=== PATIENT | female | born 1935 | race Caucasian/White ===

== ENCOUNTER 2016-12-03 18:25 | Emergency (ER) | payer MEDICARE, OTHER ==
[2016-12-03 17:04] LABS: BASOPHILS 0.7 %; BASOPHILS ABSOLUTE 0.07 10/3/uL (0.0-0.16); EOSINOPHILS 1.9 %; ER CBC TAT 0 Hrs 09 Mins; HEMOGLOBIN 12.2 g/dL (12.0-16.0); IMMATURE GRANULOCYTES 2.7 %; IMMATURE GRANULOCYTES ABSOLUTE 0.29 10/3/uL (0.0-0.11); LYMPHOCYTES 27.1 %; LYMPHOCYTES ABSOLUTE 2.86 10/3/uL (0.67-4.30); MEAN CORPUSCULAR HEMOGLOB 29.9 pg (26.0-34.0); MONOCYTES 13.5 %; MONOCYTES ABSOLUTE 1.43 10/3/uL (0.21-1.20); NEUTROPHILS 54.1 %; NEUTROPHILS ABSOLUTE 5.72 10/3/uL (2.02-8.40); PLATELET COUNT 300 10/3/uL (150-400); RBC DISTRIBUTION WIDTH 13.9 % (12.0-16.0); RED CELL COUNT 4.08 10/6/uL (4.0-5.6); WHITE BLOOD CELLS 10.6 10/3/uL (4.5-10.5)
[2016-12-03 17:06] LABS: HEMATOCRIT 34.4 % (36.0-48.0); MANUAL DIFF NO %; MEAN CORPUS HGB CONC 35.5 g/dL (32.0-36.0); MEAN CORPUSCULAR VOLUME 84.3 fL (80-100)
[2016-12-03 17:11] LABS: ASCORBIC ACID (UR NOT ORDER) NEG (NEG); BILIRUBIN, URINE NEGATIVE (NEG); ER URINALYSIS TAT 0 Hrs 16 Mins; KETONE, URINE NEGATIVE (NEG); LEUKOCYTE ESTERASE(NOT OR SMALL (NEG); NITRITE (URINE) NEG (NEG); WBC (NOT ORDERED) (RFLEX) 5 (0-5)
[2016-12-03 17:20] LABS: A/G RATIO 0.9 (0.7-1.9); ALBUMIN 3.4 G/DL (3.5-5.0); ALKALINE PHOSPHATASE 66 U/L (45-117); BUN (BLOOD UREA NITROGEN) 29 MG/DL (6-23); CALCIUM, SERUM 9.2 MG/DL (8.5-10.4); CHLORIDE, SERUM 97 MMOL/L (96-112); CO2 (CARBON DIOXIDE) 26 MMOL/L (24-34); CREATININE 1.14 MG/DL (0.55-1.02); GFR AFRICAN AMERICAN 52 ML/MIN (>=60); GFR NON AFRICAN AMERICAN 45 ML/MIN (>=60); GLOBULIN 3.7 G/DL (2.5-4.1); GLUCOSE, SERUM 104 MG/DL (60-99); POTASSIUM, SERUM 3.6 MMOL/L (3.5-5.3); SGOT(AST) 17 U/L (5-40); SGPT(ALT) 27 U/L (5-65); SODIUM, SERUM 131 MMOL/L (135-148); TOTAL BILIRUBIN 0.6 MG/DL (0-1.2); TOTAL PROTEIN 7.1 G/DL (6.0-8.5)
[~2016-12-03 18:25] MED LIST: APRES50 PO; ASAB PO; ATEN25 PO; CARDCD120 PO; CELEXA20 PO; COZAAR100 MG PO; CRESTOR10 PO; CRESTOR20 MG PO; FERROUS SULF325 M1 PO; FISH-EPA1000 MG PO; HCTZ25B PO; I-CAPS PO; ICAPS AREDS SO1 EACH PO; ICAPS LUTEIN PO; ICAPS PO; KLOR-CON 1010 MEQ PO; KLOR-CON M2020 MEQ PO; NEXIUM20 M1 PO; NITROSTAT0.4 MG SL; NORV10 PO; NORV5 PO; OS500+D PO; PLAVIX PO; RYTHMOL150 MG PO; RYTHMOL225 MG PO; TEKTURNA300 MG PO; VITAMIN B-122500 MCG SL; VITAMIN D31000 UNIT PO; X25 PO
== END 2016-12-03 21:50 | disposition home or self-care (01) ==
LOC: ER 18:25
PROVIDERS: Emergency Medicine
DX: E86.0 Dehydration (principal); K52.9 Noninfective gastroenteritis and colitis, unspecified; Z88.2 Allergy status to sulfonamides; Z88.5 Allergy status to narcotic agent; Z88.8 Allergy status to other drugs, medicaments and biological substances; Z79.899 Other long term (current) drug therapy; Z79.82 Long term (current) use of aspirin
CPT/HCPCS: 74176; 80053; 81001; 83690; 85025; 87045; 87046; 87046-59; 87086; 87328; 87329; 87493; 87493-59; 87899; 87899-59; 89055; 99284; A9270-GY

== ENCOUNTER 2016-12-09 20:33 | Emergency (ER) | payer MEDICARE, OTHER ==
[2016-12-09 20:50] LABS: BASOPHILS 0.4 %; BASOPHILS ABSOLUTE 0.03 10/3/uL (0.0-0.16); EOSINOPHILS 0.7 %; EOSINOPHILS ABSOLUTE 0.05 10/3/uL (0.0-0.53); ER CBC TAT 0 Hrs 02 Mins; HEMATOCRIT 35.4 % (36.0-48.0); IMMATURE GRANULOCYTES 0.5 %; IMMATURE GRANULOCYTES ABSOLUTE 0.04 10/3/uL (0.0-0.11); LYMPHOCYTES 26.7 %; LYMPHOCYTES ABSOLUTE 2.04 10/3/uL (0.67-4.30); MEAN CORPUS HGB CONC 33.9 g/dL (32.0-36.0); MEAN CORPUSCULAR HEMOGLOB 29.3 pg (26.0-34.0); MEAN CORPUSCULAR VOLUME 86.6 fL (80-100); MEAN PLATELET VOLUME 9.4 fL (9.2-13.0); MONOCYTES 11.9 %; MONOCYTES ABSOLUTE 0.91 10/3/uL (0.21-1.20); NEUTROPHILS 59.8 %; NEUTROPHILS ABSOLUTE 4.58 10/3/uL (2.02-8.40); RBC DISTRIBUTION WIDTH 13.8 % (12.0-16.0); RED CELL COUNT 4.09 10/6/uL (4.0-5.6); WHITE BLOOD CELLS 7.7 10/3/uL (4.5-10.5)
[2016-12-09 20:52] LABS: MANUAL DIFF NO %; PLATELET COUNT 405 10/3/uL (150-400)
[2016-12-09 21:12] LABS: A/G RATIO 0.9 (0.7-1.9); ALBUMIN 3.4 G/DL (3.5-5.0); ALKALINE PHOSPHATASE 72 U/L (45-117); CALCIUM, SERUM 9.3 MG/DL (8.5-10.4); CHLORIDE, SERUM 100 MMOL/L (96-112); CO2 (CARBON DIOXIDE) 28 MMOL/L (24-34); CREATININE 1.03 MG/DL (0.55-1.02); GFR AFRICAN AMERICAN 59 ML/MIN (>=60); GFR NON AFRICAN AMERICAN 51 ML/MIN (>=60); GLOBULIN 3.9 G/DL (2.5-4.1); GLUCOSE, SERUM 117 MG/DL (60-99); POTASSIUM, SERUM 3.6 MMOL/L (3.5-5.3); SGOT(AST) 12 U/L (5-40); SGPT(ALT) 15 U/L (5-65); SODIUM, SERUM 137 MMOL/L (135-148); TOTAL BILIRUBIN 0.5 MG/DL (0-1.2); TOTAL PROTEIN 7.3 G/DL (6.0-8.5)
[2016-12-09 21:14] LABS: BUN (BLOOD UREA NITROGEN) 14 MG/DL (6-23)
[2016-12-10 00:46] LABS: ASCORBIC ACID (UR NOT ORDER) NEG (NEG); BILIRUBIN, URINE NEGATIVE (NEG); ER URINALYSIS TAT 0 Hrs 00 Mins; KETONE, URINE TRACE MG/DL (NEG); LEUKOCYTE ESTERASE(NOT OR MOD (NEG); NITRITE (URINE) NEG (NEG); WBC (NOT ORDERED) (RFLEX) 23 (0-5)
== END 2016-12-10 02:56 | disposition home or self-care (01) ==
LOC: ER 20:33
PROVIDERS: Emergency Medicine
DX: R10.31 Right lower quadrant pain (principal); R11.2 Nausea with vomiting, unspecified; I10 Essential (primary) hypertension; K21.9 Gastro-esophageal reflux disease without esophagitis; F32.9 Major depressive disorder, single episode, unspecified; F41.9 Anxiety disorder, unspecified; D64.9 Anemia, unspecified; Z88.2 Allergy status to sulfonamides; Z88.5 Allergy status to narcotic agent; Z91.041 Radiographic dye allergy status; Z79.82 Long term (current) use of aspirin; Z79.899 Other long term (current) drug therapy
CPT/HCPCS: 74176; 80053; 81001; 83690; 85025; 87086; 96365; 96375; 99284; J2405